=== PATIENT | female | born 1955 | race African-American/Black ===

== ENCOUNTER 2019-05-07 15:48 | Inpatient (IN) ==
[2019-05-07] MEDS ORDERED: LABETALOL IV ONE (16:23)
[2019-05-07 16:59] LABS: URINE SOURCE CLEAN CATCH
[2019-05-07 17:12] LABS: BILIRUBIN URINE NEGATIVE (NEGATIVE); BLOOD URINE NEGATIVE (NEGATIVE); COLOR STRAW; GLUCOSE URINE NEGATIVE (NEGATIVE); KETONE URINE NEGATIVE (NEGATIVE); LEUKOCYTES URINE NEGATIVE (NEGATIVE); NITRITE URINE NEGATIVE (NEGATIVE); PROTEIN URINE TRACE mg/dL (NEGATIVE); TURBIDITY URINE CLEAR (CLEAR); UR EPITHELIAL CELLS <10 /HPF (<10); URINE BACTERIA NEGATIVE /HPF; URINE RBC <10 /HPF (<10); URINE WBC <10 /HPF (<10); UROBILINOGEN URINE NORMAL (NORMAL)
[2019-05-07 17:17] LABS: INR 1.04; PROTIME 13.8 Seconds (11.0-16.0); PTT 27.3 Seconds (22.3-41.8)
[2019-05-07 17:28] LABS: AGAP 12; ALB/GLOB RATIO 1.4; ALBUMIN 4.5 g/dL (3.5-5.0); ALKALINE PHOSPHATASE 75 U/L (32-104); BUN 10 mg/dL (8-22); CALCIUM 9.4 mg/dL (8.8-10.2); CHLORIDE 101 mmol/L (98-107); COSMO 273; CREATININE 0.9 mg/dL (0.5-0.9); ESTIMATED GFR > 60; GLUCOSE 98 mg/dL (70-104); GOT 14 U/L (10-30); GPT 9 U/L (10-36); SODIUM 137 mmol/L (136-145); TCO2 24 mmol/L (25-35); TOTAL BILIRUBIN 0.27 mg/dL (0.20-1.00); TOTAL PROTEIN 7.7 g/dL (6.3-8.3)
[2019-05-07] MEDS ORDERED: ZOFRAN IV PRN (17:35)
[2019-05-07] MEDS ORDERED: TYLENOL PO PRN (17:35)
[2019-05-07 17:37] LABS: HEMATOCRIT 38.4 % (37.0-47.0); HEMOGLOBIN 12.8 g/dL (12.0-16.0); MCH 30.5 PG (27-31); MCHC 33.3 g/dL (33-37); MCV 91.6 FL (81-99); MPV 11.4 FL (7.4-10.4); RBC 4.19 XMIL (4.2-5.4); RDW 14.4 % (11.5-14.5); WBC 6.95 X1000 (4.8-10.8)
[2019-05-07] MEDS: LOVENOX SUBQ SCH (17:38)
[2019-05-07] MEDS: COREG PO SCH (20:07)
[2019-05-07] MEDS ORDERED: SYMBICORT 160/4.5 MICROGM INHALER INH SCH (21:00)
[2019-05-08] MEDS: PRILOSEC PO SCH ×2 (04:19→06:00)
[2019-05-08] MEDS: LOVENOX SUBQ SCH (04:19)
[2019-05-08] MEDS ORDERED: LOVENOX SUBQ SCH (05:00)
[2019-05-08 06:21] LABS: BASO# 0.01 X1000 (0.0-0.2); BASO% 0.2 % (0.0-0.8); EOS# 0.14 X1000 (0.0-0.7); EOS% 2.9 % (0.0-10.0); HEMATOCRIT 35.9 % (37.0-47.0); HEMOGLOBIN 11.7 g/dL (12.0-16.0); MCH 30.2 PG (27-31); MCHC 32.6 g/dL (33-37); MCV 92.5 FL (81-99); MONO# 0.26 X1000 (0.11-0.59); MONO% 5.4 % (1.7-9.3); MPV 10.9 FL (7.4-10.4); NEUT# 1.43 X1000 (1.4-6.5); NEUT% 29.5 % (42.2-75.2); PLT 170 X1000 (130-400); RBC 3.88 XMIL (4.2-5.4); RDW 14.3 % (11.5-14.5); WBC 4.84 X1000 (4.8-10.8)
[2019-05-08 06:37] LABS: AGAP 10; ALB/GLOB RATIO 1.3; ALBUMIN 3.8 g/dL (3.5-5.0); ALKALINE PHOSPHATASE 65 U/L (32-104); BUN 7 mg/dL (8-22); CALCIUM 9.3 mg/dL (8.8-10.2); CHLORIDE 105 mmol/L (98-107); COSMO 278; CREATININE 0.8 mg/dL (0.5-0.9); ESTIMATED GFR > 60; GLUCOSE 104 mg/dL (70-104); GOT 13 U/L (10-30); GPT 8 U/L (10-36); MAGNESIUM 2.1 mg/dL (1.5-2.7); POTASSIUM 3.9 mmol/L (3.5-5.1); SODIUM 140 mmol/L (136-145); TCO2 25 mmol/L (25-35); TOTAL BILIRUBIN 0.37 mg/dL (0.20-1.00); TOTAL PROTEIN 6.7 g/dL (6.3-8.3)
[2019-05-08] MEDS: SINGULAIR PO SCH (08:02)
[2019-05-08] MEDS: COREG PO SCH ×2 (08:02→21:14)
[2019-05-08] MEDS: MAXZIDE-25 PO SCH (08:02)
[2019-05-08] MEDS ORDERED: ISOPTIN SR PO SCH (09:00)
[2019-05-08 11:09] LABS: FREE T4 0.84 ng/dL (0.93-1.70); TSH 0.94 uIUmL (0.27-4.20)
[2019-05-08] MEDS: VENTOLIN HFA INH SCH (16:11)
[2019-05-08] MEDS ORDERED: XARELTO PO SCH ×3 (17:47→18:04)
[2019-05-08] MEDS ORDERED: LOVENOX SUBQ ONE ×2 (18:03)
[2019-05-08] MEDS: SYMBICORT 160/4.5 MICROGM INHALER INH SCH (19:26)
[2019-05-09] MEDS: PRILOSEC PO SCH (06:01)
[2019-05-09 07:46] VITALS: BP 140/84
[2019-05-09] MEDS: VENTOLIN HFA INH SCH (07:56)
[2019-05-09] MEDS: SYMBICORT 160/4.5 MICROGM INHALER INH SCH (07:56)
[2019-05-09] MEDS ORDERED: XARELTO PO SCH (09:00)
[2019-05-09] MEDS: SINGULAIR PO SCH (09:46)
[2019-05-09] MEDS: MAXZIDE-25 PO SCH (09:46)
[2019-05-09] MEDS: COREG PO SCH (09:46)
== END 2019-05-09 11:19 | disposition home or self-care (01) ==
LOC: ED 15:48 → 2N 17:51 → SUATTDRO 17:51
PROVIDERS: ATTEND Internal Medicine

== ENCOUNTER 2019-06-09 14:35 | Inpatient (IN) ==
[2019-06-13 11:47] VITALS: BP 131/74
== END 2019-06-13 13:44 | disposition home or self-care (01) | DRG 176 ==
LOC: SUPCPDRO → ED 14:35 → 1N 17:14
PROVIDERS: ATTEND Emergency Medicine